=== PATIENT | female | born 1985 | race Caucasian/White ===

== ENCOUNTER 2016-11-14 16:11 | Inpatient (IN) ==
--- OUTSIDE RECORDS SUMMARY | 2016-11-14 16:20 | External Medical Summary | Continuity of Care Document ---
:1985 Author Organization [facility] Address [address] [place], [place] [id number] Phone Care Team Providers Name Role Phone Gabriela Amaya MD Unavailable Unavailable Allergies, Adverse Reactions, Alerts Substance Reaction Severity Status No Known Drug Allergies Unknown Active Medications Medication Instructions Dosage Effective Dates Status Comments (start - stop) 28 mg take 1 tablet by Not Available - Active iron-800 mcg oral route every tablet day Problems Condition Effective Dates (start - stop) Clinical Status Encntr screen for infections w sexl - mode of transmiss Encounter for screening for oth - infec/parastc diseases Encounter for suprvsn of normal - , first trimester Encounter for screening of - mother 10 weeks gestation of - Encounter for suprvsn of normal - , first trimester 13 weeks gestation of - Encounter for suprvsn of normal - , second trimester 20 weeks gestation of - Encounter for suprvsn of normal - , second trimester 27 weeks gestation of - Encounter for suprvsn of normal - , second trimester 17 weeks gestation of - 20 weeks gestation of - Encounter for screening of - mother Encounter for suprvsn of normal - , second trimester 24 weeks gestation of - Encounter for suprvsn of normal - , third trimester 30 weeks gestation of - Encounter for suprvsn of normal - , third trimester 32 weeks gestation of - Irregular Bleeding Active Procedures Procedure Date Unknown Results Test Name Date and Time Measure Units Reference Range Abnormal Flag Comments Unknown Advance Directives Directive Yes / No Effective Date File Name Unknown Encounters Encounter Practice Location Reason(s) Diagnoses Date Provider Care Team Description For Visit Members Tiny Silva Encounter for Sep-1 Per Referring In Womens suprvsn of normal 7-201 [place]. 700 Provider: Health GABRIEL, , third 7 Medical [place] [email or web address] weeks Center Per [place], 1522, gestation of [place], 120, Medical [facility] [id number], [place], [facility] 120, [place] [id number] Ricardo, tel:+ , [place], tel: [phone]. [id number] tel:[phone] Tiny Silva Aug-0 Per In Womens 7-201 [place]. 700 Health GABRIEL, 7 Medical PO Box Center 1522, [place], [facility], Ricardo SEGURA [id number], [place], [id number] tel: , . tel: [phone] Tiny Silva Encounter for Sep-0 Per Referring In Womens suprvsn of normal 3-201 [place]. 700 Provider: Health GABRIEL, , third 7 Medical Trevor [address] [email or web address] weeks Center Per [place], 1522, gestation of [place], 120, Medical [facility] [id number], [place], [facility] 120, [place] [id number] Ricardo, tel: , [place], tel: [phone]. [id number] tel:[phone] Tiny Silva Encounter for Aug- Per Referring In Womens suprvsn of normal 3-201 [place]. 700 Provider: Health GABRIEL, , second 7 Medical Trevor PO Box weeks Center Per [place], 1522, gestation of [place], 120, Medical [facility] [id number], [place], [facility] 120, [place] [id number] Ricardo, tel: , [place], tel: [phone]. [phone] tel:[phone] Tiny Silva Encounter for Vikram-2 Au Referring In Womens suprvsn of normal 1-201 [place]. Provider: Health GABRIEL, , second 7 700 [place] [address] [email or web address] weeks Medical Per [place], 1522, gestation of Center [employer], [facility], 120, [place] [id number], [place], [facility] 120, [place] Ricardo SEGURA, tel: [phone] [place], , [place]. [id number]. tel: tel: [phone] Tiny Silva Encounter for May-2 Per Referring In Womens suprvsn of normal 4-201 [place]. 700 Provider: Panfilo RIOS, , second 7 Medical Trevor [address] [email or web address] weeks Center Per R, 1522, gestation of [place], 120, Medical [facility] [id number], [place], [facility] 120, [place] [id number] Ricardo, tel: , [place] tel: [phone]. [id number] tel:[phone] Tiny Silva 20 weeks May-2 Per Referring In Womens Ultrasound gestation of 4-201 [place]. 700 Provider: Panfilo RIOS, pregnancyEncounte 7 Medical Trevor PO Box r for Center Per R, 1522, screening of [place], mother 120, Medical [facility] [id number], [place], [facility] 120, [place] [id number] Ricardo, tel: , [place] tel: [phone]. [phone] tel:[phone] Tiny Silva Encounter for May-0 Per Referring In Womens suprvsn of normal 2-201 [place]. 700 Provider: Panfilo RIOS, , second 7 Medical Trevor [address] [email or web address] weeks Center Per R, 1522, gestation of [place], 120, Medical [facility] [id number], [place], [place] 120, [place] [id number] Ricardo, tel: , [place], tel: [phone]. [phone] tel:[phone] Tiny Silva Encounter for Apr-0 Per Referring In Womens suprvsn of normal 4-201 [place]. 700 Provider: Panfilo RIOS, , first 7 Medical [place] [address] [email or web address] weeks [place] Per R, 1522, gestation of [place], 120, Medical [facility] [id number], [place], [place] 120, [place] [id number] Ricardo, tel: , [place], tel: [phone]. [id number] tel:[phone] Tiny Silva Encntr screen for Mar-0 Per Referring In Womens infections w sexl 7-201 [place]. 700 Provider: Panfilo RIOS, mode of 7 Medical [place] PO Box transmissEncounte [place] Per R, 1522, r for screening [place], for oth 120, Medical [place], infec/parastc [facility] [id number], diseasesEncounter [place], [place] 120, [place] for suprvsn of [id number] Ricardo, tel: normal , , [place], first tel: [phone]. trimesterEncounte [id number] tel: r for [phone] screening of [email or web address] weeks gestation of Family History Family Member Diagnosis Age At Onset Paternal Grandfather Stroke Paternal Grandmother Breast Cancer Paternal Grandmother Osteoporosis Immunizations Vaccine Date Status Comments Unknown Payers Payer name Insurance type Covered constitution party ID Authorization(s) [facility] [id number] Social History Type Description Quantity Date Captured Unknown Vital Signs Date / Height Weight BMI Pulse Blood Temperature Respiratory Body Head BMI Time: Rate Pressure Rate Surface Circumference percentile Area Unknown Chief Complaint And Reason For Visit Unknown Chief Complaint And Reason For Visit Reason For Referral Reason For Referral Unknown Plan Of Care Date Type Action Status Appointment Gosia Damian BOOKED Future Order: Radiology Order Complete OB Ultrasound > 14 Ordered Weeks ([id number]) Date Type Problem Goal Intervention Status Start Date Unknown. History Of Present Illness Encounter Date Complaint History Of Present Illness This patient has no known history of present illness Functional Status Encounter Date Functional Assessment Cognitive Assessment Unknown Medications Administered Medication Instructions Dosage Effective Dates (start - stop) Status Comments Drug Treatment Unknown Instructions Date Instruction Additional Information exercise indications for ultrasound influenza vaccine environmental / work hazards travel use of any medications (including supplements, vitamins, herbs, OTC drugs) domestic violence seat belt use childbirth classes / hospital facilities hospital registration genetic testing HIV and other routine tests risk factors identified by history anticipated course of care nutrition and weight gain counseling, special diet toxoplasmosis precautions (cats / raw meat) sexual activity new ob handbook
--- OUTSIDE RECORDS SUMMARY | 2016-11-14 16:20 | External Medical Summary | Continuity of Care Document ---
:1985 Author Organization [facility] [employer] [facility] Address [address] [place], [place] [phone] Phone Care Team Providers Name Role Phone Gabriela Amaya MD Unavailable Unavailable Allergies, Adverse Reactions, Alerts Substance Reaction Severity Status No Known Drug Allergies Unknown Active Medications Medication Instructions Dosage Effective Dates Status Comments (start - stop) 28 mg take 1 tablet by Not Available - Active iron-800 mcg oral route every tablet day Tums 200 mg - Active calcium (500 mg) chewable tablet Problems Condition Effective Dates (start - stop) Clinical Status Encounter for suprvsn of normal - , third trimester 34 weeks gestation of - Encntr screen for infections w sexl - mode of transmiss Encounter for screening for oth - infec/parastc diseases Encounter for suprvsn of normal - , first trimester Encounter for screening of - mother 10 weeks gestation of - Encounter for suprvsn of normal - , third trimester 36 weeks gestation of - Encounter for screening of - mother Encounter for suprvsn of normal - , first trimester 13 weeks gestation of - Encounter for suprvsn of normal - , second trimester 20 weeks gestation of - Encounter for suprvsn of normal - , second trimester 17 weeks gestation of - Encounter for screening of - mother 20 weeks gestation of - Encounter for suprvsn of normal - , second trimester 24 weeks gestation of - Encounter for suprvsn of normal - , second trimester 27 weeks gestation of - Encounter for suprvsn of normal - , third trimester 30 weeks gestation of - Encounter for suprvsn of normal - , third trimester 32 weeks gestation of - Encounter for suprvsn of normal - , third trimester 37 weeks gestation of - Irregular Bleeding Active Procedures Procedure Date OB Visit No Charge Results Test Name Date and Time Measure Units Reference Range Abnormal Flag Comments Unknown Advance Directives Directive Yes / No Effective Date File Name Unknown Encounters Encounter Practice Location Reason(s) Diagnoses Date Provider Care Team Description For Visit Members Tiny Silva Encounter for Sep-2 Per Referring In Womens suprvsn of normal 0-201 [place]. 700 Provider: Health [place], , third 7 Medical [place] [address] [email or web address] weeks Center Per R, 1522, gestation of [place], 120, Medical RIRicardo [place] [id number], [facility] 120, [place] [id number] Ricardo, tel: , [place], tel: [phone]. [id number] tel:[phone] Tiny Silva Encounter for Sep-1 Per Referring In Womens suprvsn of normal 3-201 [place]. 700 Provider: Health [place], , third 7 Medical [place] [address] [email or web address] weeks Center Per R, 1522, gestation of [place], pregnancyEncounte 120, Medical [place], r for [place] [id number], [facility], [place] mother [id number] [place]ardo, tel: , [place], tel: [phone]. [id number] tel:[phone] Tiny Silva Encounter for Sep-3 Per Referring In Womens suprvsn of normal 1-201 [place]. 700 Provider: Health [place], , third 7 Medical [place] PO Box [email or web address] weeks Center Per R, 1522, gestation of [place], 120, Medical [facility] [id number], [place], [facility] 120, [place] [id number] Ricardo, tel:+2 , [place]. [place], tel: [phone]. [phone] tel:[phone] Tiny Silva Encounter for Aug-1 Per Referring In Womens suprvsn of normal 7-201 [place]. 700 Provider: Health GABRIEL, , third 7 Medical [place] PO Box [email or web address] weeks Center Per R, 1522, gestation of [place], 120, Medical [facility] [id number], [place], [facility] 120, [place] [id number] Ricardo, tel:+ , [place], tel: [phone]. [phone] tel:[phone] Tiny Silva Encounter for Aug-0 Per Referring In Womens suprvsn of normal 3-201 [place]. 700 Provider: Health GABRIEL, , third 7 Medical [place] [address] [email or web address] weeks Center Per R, 1522, gestation of [place], 120, Medical [facility] [id number], [place], [facility] 120, [place] [id number] Ricardo, tel:+ , [place], tel: [phone]. [id number] tel:[phone] Tiny Silva Encounter for Dangelo-1 Per Referring In Womens suprvsn of normal 3-201 [place]. 700 Provider: Health [place], , second 7 Medical [place] PO Box [email or web address] weeks Center Per R, 1522, gestation of [place], 120, Medical [facility] [id number], [place], [place] 120, [place] [id number] Ricardo, tel:+316 , [place], tel: [phone]. [phone] tel:[phone] Tiny Silva Encounter for Vikram-2 Au Referring In Womens suprvsn of normal 1-201 [place]. Provider: Health [place], , second 7 700 [place] [address] [email or web address] weeks Medical Per R, 1522, gestation of Center [employer], , [facility] [facility], 120, [place] [id number], Ricardo, [facility] 120, [place] Ricardo SEGURA, tel: [phone] [place], , [place]. [id number]. tel: tel:[phone] Tiny Silva Encounter for May-2 Per Referring In Womens suprvsn of normal 4-201 [place]. 700 Provider: Health GABRIEL, , second 7 Medical [place] PO Box [email or web address] weeks Center Per R, 1522, gestation of [place], 120, Medical [facility] [id number], [place], [facility] 120, [place] [id number] Ricardo, tel: , [place], tel: [phone]. [id number] tel:[phone] Tiny Silva Encounter for May-2 Per Referring In Womens Ultrasound 4-201 [place]. 700 Provider: Panfilo RIOS, screening of 7 Medical [place] PO Box [email or web address] weeks Center Per R, 1522, gestation of [place], 120, Medical Ric[facility] [id number], [place], [facility] 120, [place] [id number] Ricardo, tel: , [place], tel: [phone]. [phone] tel:[phone] Tiny Silva Encounter for May-0 Per Referring In Womens suprvsn of normal 2-201 [place]. 700 Provider: Health GABRIEL, , second 7 Medical [place] PO Box [email or web address] weeks Center Per R, 1522, gestation of [place], 120, Medical Ric[facility] [id number], [place], [facility] 120, [place] [id number] Ricardo, tel: , [place], tel: [phone]. [id number] tel:[phone] Tiny Silva Encounter for Apr-0 Per Referring In Womens suprvsn of normal 4-201 [place]. 700 Provider: Health GABRIEL, , first 7 Medical [place] [address] Box [email or web address] weeks Center Per R, 1522, gestation of [place], 120, Medical [place], [facility] [id number], [place], [facility] 120, [place] [id number] Ricardo, tel: , [place], tel: [phone]. [phone] tel:[phone] Associates Ricardo Encntr screen for Mar-0 Per Referring In Womens infections w sexl 7-201 [place]. Ingris Provider: Health [place], mode of 7 [facility] PO Box transmissEncounte [place] Per R, 1522, r for screening [place], for oth 120, Medical IMELDA infec/parastc [facility] [id number], [facility] [place], [facility] 120, [place] for suprvsn of [id number] Ricardo, tel: normal , , [place], first tel: [phone]. trimesterEncounte [id number] tel: r for [phone] screening of [email or web address] weeks gestation of Family History Family Member Diagnosis Age At Onset Paternal Grandfather Stroke Paternal Grandmother Breast Cancer Paternal Grandmother Osteoporosis Immunizations Vaccine Date Status Comments Tdap completed Source: New Immunization Record Payers Payer name Insurance type Covered constitution party ID Authorization(s) [facility] [id number] [facility] [id number] Social History Type Description Quantity Date Captured Alcohol Use Details No Caffeine Use Details Unknown Tobacco Use Status Unknown Smoking Status Never smoker Vital Signs Date / Height Weight BMI Pulse Blood Temperature Respiratory Body Head BMI Time: Rate Pressure Rate Surface Circumference percentile Area 174.60 28.6 129/2017 lbs 1 mm[Hg] 4:59 kg/m PM eter (2) Chief Complaint And Reason For Visit Unknown Chief Complaint And Reason For Visit Reason For Referral Reason For Referral Unknown Plan Of Care Date Type Action Status Appointment Gosia Damian BOOKED Future Order: Radiology Order Complete OB Ultrasound > 14 Ordered Weeks ([id number]) Date Type Problem Goal Intervention Status Start [...]
--- OUTSIDE RECORDS SUMMARY | 2016-11-14 16:20 | External Medical Summary ---
:1985 Author Organization [facility]. Summary purpose CCDA Sent to [facility] Chief Complaint and Reason for Visit No authorized Reason for Visit (Admitting Diagnosis) is available for this visit. Problem list Condition Status Certainty Chronicity Onset .Delivery, vaginal Discharged Encounters The following conditions tracked for encounter diagnoses were recorded for this visit: Finding or Diagnosis Status Certainty Chronicity Onset .Delivery, vaginal Discharged Medications Discharge Medications Status Medication Directions Current Pre- Multivitamins with Minerals 27 mg-1 mg-300 mg capsule oral -Daily Allergies, adverse reactions, alerts Allergen Category Ingredient Status Reaction Severity Onset No Allergy Information Drug No Allergy Inactive Available Information Available Immunizations No immunizations recorded for this patient visit Relevant diagnostic tests and/or laboratory data RESULTS 88-60-565110:08:03 Discharge Summary s/p . Doing well. . CBC 20-67-826219:55:00 Result Normal Range Units HGB L 8.5 12.0-16.0 g/dl HCT L 26.5 37.0-47.0 % 40-91-325428:44:00 Result Normal Range Units WBC H 11.45 4.8-10.8 x103/mm3 Neutrophil % H 81.4 50-70 % Lymph % L 11.2 20-50 % [place] % 6.9 1.0-9.0 % Eosinophil % 0.3 0-4 % Basophil % 0.2 0-2 % Neutrophil # H 9.33 3.0-7.0 x103/mm3 Lymph # 1.28 1.0-4.0 x103/mm3 [place] # 0.79 0.0-0.8 x103/mm3 Eosinophil # 0.03 0-0.5 x103/mm3 Basophil # 0.02 0-0.2 x103/mm3 RBC L 3.14 4.20-5.40 x103/mm3 HGB L 9.6 12.0-16.0 g/dl HCT L 29.5 37.0-47.0 % MCV 93.9 81-99 FL MCH 30.6 27.0-31.0 pg MCHC 32.5 32.0-36.0 g/dl RDW 14.6 12-15 % Platelet 155 150-400 x103/mm3 MPV H 12.1 6.0-10.0 FL History of procedures Procedure Code Code Type Description Date Performed Performing Physician [id number] ICD10 Delivery of Products of 03-12-2015 ELVI FAST Conception, External Approach [id number] ICD10 Introduce Regional 03-12-2015 ELVI FAST Anesth in Epidural Space, Perc [id number] ICD10 Repair Perineum Skin, 03-12-2015 ELVI FAST External Approach [id number] ICD10 Drainage of Amniotic Fl, 03-12-2015 ELVI FAST Therap from POC, Via Opening [id number] ICD10 Monitoring of POC, 03-12-2015 ELVI FAST Cardiac Rate, Bottom Man Approach Functional status Functional Status Finding Observation Time Dexterity Left-handed 77-09-313765:40 Weight Bearing Statu Full 22-13-061170:45 Transferring/Ambulat Independent 37-27-152264:40 Bathing Independent 58-98-655615:40 Dressing Independent 88-41-462050:40 Eating Independent 04-30-567521:40 Drinking Independent 74-72-006993:40 Toileting Independent 66-11-046818:40 Able to Turn Self in Independent 39-54-239815:40 Stairs Independent 41-15-996425:40 Cognitive Status Finding Observation Time Level of Consciousne Alert :28 Oriented to Person Yes 76-28-229998:[address] Yes 16-50-263446:28 Oriented to Time Yes 60-48-108161:28 Eyes - ABDIAS Yes 23-31-669495:42 Vital signs Type Value Date Respirations 20 :45 Pulse 114 :45 O2 Saturation 100% :45 Systolic Blood Press 131mm/HG :45 Diastolic Blood Pres 88mm/HG :45 Temperature (Fahr) 97.5Degrees :45 Height 65.5in :58 Weight 183.8LB :58 Social history Type Value Smoking Status NEVER SMOKER Treatment Plan Treatment Plan at [facility]. Follow up 6 weeks. Hospital discharge instructions No discharge instruction text is available for this visit.
--- OUTSIDE RECORDS SUMMARY | 2016-11-14 16:21 | External Medical Summary | Continuity of Care Document ---
:1985 Author Organization [facility] Address [address] [place], [place] [id number] Phone Care Team Providers Name Role Phone Gabriela Amaya MD Unavailable Unavailable Allergies, Adverse Reactions, Alerts Substance Reaction Severity Status No Known Drug Allergies Unknown Active Medications Medication Instructions Dosage Effective Dates Status Comments (start - stop) 28 mg take 1 tablet by Not Available - Active iron-800 mcg oral route every tablet day amoxicillin 500 take 1 tablet by 500 MG - No Longer mg tablet ORAL route 3 times Active every day for 7 days Problems Condition Effective Dates (start - stop) Clinical Status Encounter for suprvsn of normal - , third trimester 32 weeks gestation of - Encntr screen for infections w sexl - mode of transmiss Encounter for screening for oth - infec/parastc diseases Encounter for suprvsn of normal - , first trimester 10 weeks gestation of - Encounter for screening [...] third trimester 34 weeks gestation of - Irregular Bleeding Active Procedures Procedure Date OB Visit No Charge Results Test Name Date and Time Measure Units Reference Range Abnormal Flag Comments Unknown Advance Directives Directive Yes / No Effective Date File Name Unknown Encounters Encounter Practice Location Reason(s) Diagnoses Date Provider Care Team Description For Visit Members Tiny Silva Encounter for Sep-3 Per Referring In Womens suprvsn of normal 1-201 [place]. 700 Provider: Health GABRIEL, , third 7 Medical [place] [address] [email or web address] weeks [place] Per Wiley, 1522, gestation of [place] Paz, 120, [facility] [id number], [place], [facility] 120, [place] [id number] Ricardo, tel: , . [place], tel: [phone]. [id number] tel:[phone] Tiny Silva Encounter for Sep-1 Per Referring In Womens suprvsn of normal 7-201 [place]. 700 Provider: Health GABRIEL, , third 7 Medical [place] PO Box [email or web address] weeks [place] Per Wiley 1522, gestation of [place] Paz, 120, [facility] [id number], [place], [facility] 120, [place] [id number] Ricardo, tel: , [facility], tel: [phone]. [id number] tel:[phone] Tiny Silva Encounter for Aug-0 Per Referring In Womens suprvsn of normal 3-201 [place]. 700 Provider: Health GABRIEL, , third 7 Medical Trevor [address] [email or web address] weeks Center Per Wiley, 1522, gestation of [place] Paz, 120, [facility] [id number], [place], [place] 120, [place] [id number] Ricardo, tel: , [place]. [place], tel: [phone]. [id number] tel:[phone] Tiny Silva Encounter for Aug-1 Per Referring In Womens suprvsn of normal 3-201 [place]. 700 Provider: Panfilo RIOS, , second 7 Medical Trevor PO Box [email or web address] weeks Center Per R, 1522, gestation of [place] Paz, 120, [facility] [id number], [place], [facility] 120, [place] [id number] Ricardo, tel: , [place]. [place], tel: [phone]. [id number] tel:[phone] Tiny Silva Encounter for Vikram-2 Au Referring In Womens suprvsn of normal 1-201 [place]. Provider: Panfilo RIOS, , second [address] [place] [address] Box [email or web address] weeks Medical Per R, 1522, gestation of Jeniffer Cleaning, [place] Paz [facility], 120, [place] [id number], [place], [facility] 120, [place] Ricardo SEGURA, tel: [phone] [place], , [place]. [id number]. tel: tel: [phone] Tiny Silva Encounter for June-2 Per Referring In Womens suprvsn of normal 4-201 [place]. 700 Provider: Panfilo RIOS, , second 7 Medical [place] PO [address] [email or web address] weeks Center Per R, 1522, gestation of [place] Paz, 120, [facility] [id number], [place], [facility] 120, [place] [id number] Ricardo, tel: , [place]. [place], tel: [phone]. [id number] tel:[phone] Tiny Silva Encounter for May-2 Per Referring In Womens Ultrasound 4-201 [place]. 700 Provider: Panfilo RIOS, screening of 7 Medical Trevor PO Box weeks Center Per R, 1522, gestation of [place] Paz, 120, Medical Ricardo SEGURA, [place] [id number], [place], [place] 120, [place] [id number] Ricardo, tel: , [place]. [place], tel: [phone]. [id number] tel:[phone] Tiny Silva Encounter for May-0 Per Referring In Womens suprvsn of normal 2-201 [place]. 700 Provider: Health GABRIEL, , second 7 Medical [place] PO Box [email or web address] weeks [place] Per R, 1522, gestation of [place] Paz, 120, Medical Ricardo SEGURA [place] [id number], [place], [facility] 120, [place] [id number] Ricardo, tel: , [place]. [place], tel: [phone]. [id number] tel:[phone] Tiny Silva Encounter for Apr-0 Per Referring In Womens suprvsn of normal 4-201 [place]. 700 Provider: Panfilo RIOS, , first 7 Medical [place] PO Box weeks Center Per R, 1522, gestation of [place] Paz, 120, [facility] [id number], [place], [facility] 120, [place] [id number] Ricardo, tel: , [place]. [place], tel: [phone]. [id number] tel:[phone] Tiny Silva Encntr screen for Mar-0 Per Referring In Womens infections w sexl 7-201 [place]. 700 Provider: Panfilo RIOS, mode of 7 Medical [place] PO Box transmissEncounte [place] Per R, 1522, r for screening [place] Paz, for oth 120, Medical IMELDA infec/parastc Jeniffer [address] Dr [id number], diseasesEncounter [place], [facility] 120, [place] for suprvsn of [id number] Ricardo, tel: normal , , [place]. [place] first [id number] tel: [phone]. weeks gestation [id number] tel: of [phone] pregnancyEncounte r for screening of mother Family History Family Member Diagnosis Age At Onset Paternal Grandfather Stroke Paternal Grandmother Breast Cancer Paternal Grandmother Osteoporosis Immunizations Vaccine Date Status Comments Unknown Payers Payer name Insurance type Covered green party ID Authorization(s) [facility] IMELDA KEANE [id number] Social History Type Description Quantity Date Captured Alcohol Use Details No Caffeine Use Details Unknown Tobacco Use Status Unknown Smoking Status Never smoker Vital Signs Date / Height Weight BMI Pulse Blood Temperature Respiratory Body Head BMI Time: Rate Pressure Rate Surface Circumference percentile Area 170.70 27.9 133/83 -2017 lbs 7 mm[Hg] 4:43 kg/m PM eter (2) Chief Complaint And Reason For Visit Unknown Chief Complaint And Reason For Visit Reason For Referral Reason For Referral Unknown Plan Of Care Date Type Action Status Appointment Gosia Damian BOOKED Future Order: Radiology Order Complete OB Ultrasound > 14 Ordered Weeks (70772) Date Type Problem Goal Intervention Status Start [...]
--- OUTSIDE RECORDS SUMMARY | 2016-11-14 16:21 | External Medical Summary | Continuity of Care Document ---
:1987 Author Organization [facility]. Allergies Active Description Code Type Severity Reaction Onset Reported/ Identified Relationship Clinical to Patient Status Yes No Known 77926 3 N/A N/A Drug 0 Allergies Yes No Allergy 143 Drug N/A N/A 03/12/2015 Confirmed Information Aller but Available gy inactive Yes No Known 66560 Drug N/A N/A 03/12/2015 Confirmed Drug Allergy 590 Aller but gy inactive Medications Problems Date Dx Attending Type Code Diagnosis Diagnosed By Coded 03/14/2015 ELVI EL MD O69.81X0 Labor and del comp by cord around neck, w/o comprsn, unsp 03/14/2015 ELVI EL MD O70.1 Second degree perineal laceration during delivery 03/14/2015 ELVI EL MD O99.824 Streptococcus B carrier state complicating childbirth 03/14/2015 ELVI EL MD 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 03/14/2015 ELVI EL MD Z37.0 Single live 03/14/2015 ELVI EL MD Z3A.39 39 weeks gestation of 07/07/2016 Trevor Albarado Z36 Encounter for screening of mother 07/07/2016 Trevor Albarado Z3A.20 20 weeks gestation of Procedures Code Description Performed By Performed On ELVI EL MD 03/12/2015 [id number] Repair Perineum Skin, External Approach ELVI EL MD 03/12/2015 [id number] Drainage of Amniotic Fl, Therap from POC, Via Opening ELVI EL MD 03/12/2015 [id number] Delivery of Products of Conception, External Approach ELVI EL MD 03/12/2015 [id number] Introduce Regional Anesth in Epidural Space, Perc ELVI EL MD 03/12/2015 [id number] Monitoring of POC, Cardiac Rate, Manager Social Responsibility Approach 07/07/2016 39112 Ultrasnd exam of preg uterus, compl Results Test Result Range CBC - 01/27/16 09:53 Eos # 0.03 x10^3 0-0.5 Eos % 0.3 % 0-4 HCT 29.5 % 37.0-47.0 HGB 9.6 G/DL 12.0-16.0 Lymph # 1.28 x10^3 1.0-4.0 Lymph % 11.2 % 20-50 MCH 30.6 PG 27.0-31.0 MCHC 32.5 G/DL 32.0-36.0 MCV 93.9 FL 81-99 [place] # 0.79 x10^3 0.0-0.8 [place] % 6.9 % 1.0-9.0 MPV 12.1 FL 6.0-10.0 Platelet 155 x10^3 150-400 RBC 3.14 x10^3 4.20-5.40 RDW 14.6 % 12-15 WBC 11.45 x10^3 4.8-10.8 Baso # 0.02 x10^3 0-0.2 Baso % 0.2 % 0-2 Neut % 81.4 % 50-70 Neut # 9.33 x10^3 3.0-7.0 HCT - 03/13/15 07:44 HCT 26.5 % 37.0-47.0 HGB - 03/13/15 07:44 HGB 8.5 G/DL 12.0-16.0 Encounters ACCT No. Visit Discharge Status Pt. Type Provider Facility Loc./Unit Complaint Date/Time [id number] 03/12/2015 03/14/2015 DIS Inpatient FAST Phong WARREN [facility] 07:45:00 15:56:[address] [facility] [id number] 10/27/2016 10/27/2016 CLS Kevin Albarado, 16:30:00 23:59:59 t Trevor Wiley [id number] 10/14/2016 10/14/2016 ROBSON Albarado, 16:20:00 23:59:59 t Trevor Wiley [id number] 09/30/2016 09/30/2016 CLS Kevin Albarado, 16:20:00 23:59:59 t [place] Wiley [id number] 09/20/2016 09/20/2016 ROBSON Albarado, 08:40:00 23:59:59 t Trevor Wiley [id number] 09/16/2016 09/16/2016 CLS Outpatien Per, 16:30:00 23:59:59 t Trevor Wiley [id number] 08/26/2016 08/26/2016 CLS Outpatien Per, 09:40:00 23:59:59 t Trevor Wiley [id number] 2016 2016 CLS Outpatien Per, 11:51:00 23:59:59 t Trevor Wiley [id number] 08/04/2016 08/04/2016 CLS Outpatien Au, 16:30:00 23:59:59 t Ruma K [id number] 07/07/2016 07/07/2016 CLS Outpatien Per, 16:15:00 23:59:59 t Trevor Wiley [id number] 07/07/2016 07/07/2016 CLS Outpatien Per, 15:45:00 23:59:59 t Trevor Wiley [id number] 06/15/2016 06/15/2016 CLS Outpatien Per, 16:30:00 23:59:59 t Trevor Wiley [id number] 05/18/2016 05/18/2016 CLS Outpatien Per, 16:15:00 23:59:59 t Trevor Wiley [id number] 04/20/2016 04/20/2016 CLS Outpatien Per, 10:15:00 23:59:59 t Trevor Wiley [id number] 11/10/2016 Document 16:20:00 Registrat ion [id number] 11/03/2016 Document 16:25:00 Registrat ion
--- OUTSIDE RECORDS SUMMARY | 2016-11-14 16:21 | External Medical Summary | Continuity of Care Document ---
:1985 Author Organization [facility] Address [address] [place], [place] [address] Phone Care Team Providers Name Role Phone [...] second trimester 27 weeks gestation of - Irregular Bleeding Active Procedures Procedure Date Unknown Results Test Name Date and Time Measure Units Reference Range Abnormal Flag Comments Unknown Advance Directives Directive Yes / No Effective Date File Name Unknown Encounters Encounter Practice Location Reason(s) Diagnoses Date Provider Care Team Description For Visit Members Tiny Silva Encounter for Aug- Per Referring In Womens suprn of normal 3-201 [place]. 700 Provider: Health GABRIEL, , second 7 Medical [place] PO Box [email or web address] weeks [place] Per R, 1522, gestation of [place] Paz, 120, [facility] [id number], [place], [facility] 120, [place] [id number] Ricardo, tel: , [place], tel: [phone]. [id number] tel:[phone] Tiny Silva Vikram-2 Per In Womens 9-201 [place]. 700 Health GABRIEL, 7 Medical PO Box Center 1522, [place] P[place], [facility], Ricardo SEGURA, [id number], [place], [id number] tel: , [place]. tel: [phone] Tiny Silva Encounter for Vikram-2 Au Referring In Womens suprn of normal 1-201 [place]. Provider: Health GABRIEL, , second [address] [place] [address] Box weeks Medical Per R, 1522, gestation of Jeniffer Cleaning, [address], 120, [place] [id number], [facility] 120, Ricardo SEGURA, tel: [phone] [place], , [place]. [id number]. tel: tel: [phone] Tiny Silva Encounter for June-2 Per Referring In Womens suprvsn of normal 4-201 [place]. 700 Provider: Health GABRIEL, , second 7 Medical [place] PO Box [email or web address] weeks Center Per R, 1522, gestation of [place] Paz, 120, Medical [facility] [id number], [place], [facility] 120, [place] [id number] Ricardo, tel: , [place]. [place] tel: [phone]. [id number] tel:[phone] Tiny Silva 20 weeks May-2 Per Referring In Womens Ultrasound gestation of 4-201 [place]. 700 Provider: Health GABRIEL, pregnancyEncounte 7 Medical [place] PO Box r for Center Per R, 1522, screening of [place] Paz, mother 120, Medical [facility] [id number], [place], [place] 120, [place] [id number] Ricardo, tel: , [place]. [place], tel: [phone]. [id number] tel:[phone] Tiny Silva Encounter for May-0 Per Referring In Womens suprvsn of normal 2-201 [place]. 700 Provider: Health GABRIEL, , second 7 Medical [place] PO Box [email or web address] weeks Center Per R, 1522, gestation of [place] Paz, 120, Medical [facility] [id number], [place], [place] 120, [place] [id number] Ricardo, tel: , [place]. [place] tel: [phone]. [id number] tel:[phone] Tiny Silva Encounter for Apr-0 Per Referring In Womens suprvsn of normal 4-201 [place]. 700 Provider: Health GABRIEL, , first 7 Medical [place] PO Box [email or web address] weeks Center Per R, 1522, gestation of [place] Paz, 120, Medical [facility] [id number], [place], [place] 120, [place] [id number] Ricardo, tel: , [place]. [place] tel: [phone]. [id number] tel:[phone] Tiny Silva Encntr screen for Mar-0 Per Referring In Womens infections w sexl 7-201 [place]. 700 Provider: Health GABRIEL, mode of 7 Medical [place] PO Box transmissEncounte Center Per R, 1522, r for screening [place] Paz, for oth 120, Medical [place], [facility] [id number], diseasesEncounter [place], [place] 120, [place] for suprvsn of [id number] Ricardo, tel: normal , , [place]. [place] first tel: [phone]. trimesterEncounte [id number] tel:[phone] r for [phone] screening of [id number] weeks gestation of Family History Family Member Diagnosis Age At Onset Paternal Grandfather Stroke Paternal Grandmother Breast Cancer Paternal Grandmother Osteoporosis Immunizations Vaccine Date Status Comments Unknown Payers Payer name Insurance type Covered alliance party ID Authorization(s) BERRYKEVIN KEANE [id number] Social History Type Description Quantity Date Captured [...] Complete OB Ultrasound > 14 Ordered Weeks (84450) Date Type Problem Goal Intervention Status Start [...]
--- OUTSIDE RECORDS SUMMARY | 2016-11-14 16:21 | External Medical Summary | Continuity of Care Document ---
:1987 Author Organization [facility] Address [address] [place], [place] [phone] Phone Care Team Providers Name Role Phone [...] third trimester 30 weeks gestation of - Encntr screen for [...] 17 weeks gestation of - Encounter for suprvsn of normal - , third trimester 32 weeks gestation of - Encounter for screening of - mother 20 weeks gestation of - Irregular Bleeding Active Procedures Procedure Date OB Visit No Charge Results Test Name Date and Time Measure Units Reference Range Abnormal Flag Comments Unknown Advance Directives Directive Yes / No Effective Date File Name Unknown Encounters Encounter Practice Location Reason(s) Diagnoses Date Provider Care Team Description For Visit Members Tiny Silva Encounter for Per Referring In Womens suprvsn of normal 7-201 [place]. 700 Provider: Health PA, , third 7 Medical [place] PO Box [email or web address] weeks Center Per Wiley, 1522, gestation of [place] Paz, 120, Medical [facility] [id number], [place], [facility] 120, [place] [id number] Ricardo, tel:+ , [place]. [place], tel: [phone]. [id number] tel:[phone] Tiny Silva Encounter for Per Referring In Womens suprvsn of normal 3-201 [place]. 700 Provider: Health GABRIEL, , third 7 Medical [place] PO Box [email or web address] weeks Center Per Wiley, 1522, gestation of [place] Paz, 120, Medical [facility] [id number], [place], [facility] 120, [place] [id number] Ricardo, tel: , [place], tel: [phone]. [id number] tel:[phone] Tiny Silva Encounter for Per Referring In Womens suprvsn of normal 3-201 [place]. 700 Provider: Health PA, , second 7 Medical [place] PO Box [email or web address] weeks Center Per Wiley, 1522, gestation of [place] Paz, 120, Medical [facility] [id number], [place], [place] 120, [place] [id number] Ricardo, tel: , . [place], tel: [phone]. [id number] tel:[phone] Tiny Silva Encounter for Jul- Au Referring In Womens suprvsn of normal 1-201 [place]. Provider: Health GABRIEL, , second 7 700 [place] PO Box [email or web address] weeks Medical Per R, 1522, gestation of Center Ingris Cleaning, , [place] [facility], 120, [place] [id number], Ricardo, [facility] 120, [place] Ricardo SEGURA, tel:+ [phone] [place], , [place]. [id number]. tel: tel:[phone] Tiny Silva Encounter for May-2 Per Referring In Womens suprvsn of normal 4-201 [place]. 700 Provider: Health GABRIEL, , second 7 Medical [place] PO Box [email or web address] weeks Center Per R, 1522, gestation of [place] Paz, 120, Medical [facility] [id number], [place], [facility] 120, [place] [id number] Ricardo, tel:+ , [place]. [place], tel: [phone]. [id number] tel:[phone] Tiny Silva Encounter for May-2 Per Referring In Womens Ultrasound 4-201 [place]. 700 Provider: Panfilo RIOS, screening of 7 Medical [place] PO Box [email or web address] weeks Center Per R, 1522, gestation of [place] Paz, 120, Medical [facility] [id number], [place], [facility] 120, [place] [id number] Ricardo, tel:+ , [place]. [place], tel: [phone]. [id number] tel:[phone] Tiny Silva Encounter for May-0 Per Referring In Womens suprvsn of normal 2-201 [place]. 700 Provider: Health GABRIEL, , second 7 Medical [place] PO Box [email or web address] weeks Center Per R, 1522, gestation of [place] Paz, 120, Medical Ricardo SEGURA, [place] [id number], [place], [facility] 120, [place] [id number] Ricardo, tel:+[phone] , [place]. [place], tel: [phone]. [id number] tel:[phone] Tiny Silva Encounter for Apr-0 Per Referring In Womens suprvsn of normal 4-201 [place]. 700 Provider: Health PA, , first 7 Medical [place] PO Box [email or web address] weeks Center Per R, 1522, gestation of [place] Pazta, 120, Medical [facility] [id number], [place], [facility] 120, [place] [id number] Ricardo, tel:+ , [place]. [place], tel: [phone]. [id number] tel:[phone] Associates Ricardo Encntr screen for Mar-0 Per Referring In Womens infections w sexl - Trevor. Ingris Provider: Health GABRIEL, mode of 7 Medical [place] PO Box transmissEncounte [place] Per R, 1522, r for screening [place] Paz, for oth 120, Medical [place], infec[facility]parastc [facility] [id number], diseasesEncounter [place], [facility] 120, [place] for suprvsn of [id number] Ricardo, tel: normal , , [place]. [place], first tel: [phone]. trimesterEncounte [id number] tel: r for [phone] screening of weeks gestation of Family History Family Member Diagnosis Age At Onset Paternal Grandfather Stroke Paternal Grandmother Breast Cancer Paternal Grandmother Osteoporosis Immunizations Vaccine Date Status Comments Unknown Payers Payer name Insurance type Covered republican ID Authorization(s) [facility] [id number] Social History Type Description Quantity Date Captured Alcohol Use Details No Caffeine Use Details Unknown Tobacco Use Status Unknown Smoking Status Never smoker Vital Signs Date / Height Weight BMI Pulse Blood Temperature Respiratory Body Head BMI Time: Rate Pressure Rate Surface Circumference percentile Area 165.80 27.1 129/ lbs 7 mm[Hg] 4:40 kg/m PM eter (2) Chief Complaint And Reason For Visit Unknown Chief Complaint And Reason For Visit Reason For Referral Reason For Referral Unknown Plan Of Care Date Type Action Status Appointment Gosia Damian BOOKED Future Order: Radiology Order Complete OB Ultrasound > 14 Ordered Weeks ([id number]) Date Type Problem Goal Intervention Status Start [...]
--- OUTSIDE RECORDS SUMMARY | 2016-11-14 16:21 | External Medical Summary | Continuity of Care Document ---
:1985 Author Organization [facility] Address [address] [place], [place] [id number] Phone Care Team Providers Name Role Phone [...] second trimester 27 weeks gestation of - Encntr screen for [...] Procedures Procedure Date OB Visit No Charge Hemoglobin count, colorimetric Hematocrit blood count Glucose test Venpnctr fngr/heel/ear stick routne Results Test Name Date and Time Measure Units Reference Range Abnormal Flag Comments Panel Description: Glucose [Mass/volume] in Serum or Plasma --1 hour post 50 g glucose PO GLUCOSE, 112 mg/dL <140 N Test performed at [facility] GESTATIONAL SCREEN 10:40:00 [id number] ([id number] [place] [address]Mliiraux: KELLY DAMIAN DO,MPH Panel Description: HEMOGLOBIN + HEMATOCRIT HEMOGLOBIN 10:40:00 11.4 g/dL 11.7-15.5 L HEMATOCRIT 10:40:00 33.6 % 35.0-45.0 L Test performed at [employer] [id number] [place] [address]Iefsspso: KELLY DAMIAN DO,MPH Advance Directives Directive Yes / No Effective Date File Name Unknown Encounters Encounter Practice Location Reason(s) Diagnoses Date Provider Care Team Description For Visit Members Tiny Silva Encounter for Per Referring [facility] 3-201 [place]. 700 Provider: Panfilo RIOS, , second 7 [facility] Box [email or web address] weeks [place] Per R, 1522, gestation of [place] Paz, 120, Medical [facility] [id number] [facility] 120, [id number] Ricardo, tel: , . [place], tel: [phone]. [id number] tel:[phone] Tiny Silva Encounter for Au Referring In [facility] 1-201 [place]. Provider: Health GABRIEL, , second 7 700 [facility] Box [email or web address] weeks Medical Per R, 1522, gestation of Center [address] [place], [address] [facility] IMELDA 120, [place] [id number] 120, Ricardo SEGURA, tel: [phone] [facility] , [place]. [id number]. tel: tel: [phone] Tiny Silva Encounter for May-2 Per Referring In Womens suprvsn of normal 4-201 [place]. 700 Provider: Health GABRIEL, , second 7 Medical Trevor [address] [email or web address] weeks Center Per R, 1522, gestation of [place] Paz, 120, Medical [facility] [id number], [place], [place] 120, [place] [id number] Ricardo, tel: , [place]. [place], tel: [phone]. [phone] tel:[phone] Tiny Silva Encounter for May-2 Per Referring In Womens Ultrasound 4-201 [place]. 700 Provider: Panfilo RIOS, screening of 7 Medical Trevor [address] [email or web address] weeks Center Per R, 1522, gestation of [place] Paz, 120, Medical [facility] [id number], [place], [place] 120, [place] [id number] Ricardo, tel: , [place]. [place], tel: [phone]. [phone] tel:[phone] Tiny Silva Encounter for May-0 Per Referring In Womens suprvsn of normal 2-201 [place]. 700 Provider: Health GABRIEL, , second 7 Medical Trevor [address] [email or web address] weeks Center Per R, 1522, gestation of [place] Paz, 120, Medical [facility] [id number], [place], [place] 120, [place] [id number] Ricardo, tel: , [place]. [place], tel: [phone]. [phone] tel:[phone] Tiny Silva Encounter for Apr-0 Per Referring In Womens suprvsn of normal 4-201 [place]. 700 Provider: Panfilo RIOS, , first 7 Medical Trevor [address] [email or web address] weeks Center Per R, 1522, gestation of [place], 120, Medical [facility] [id number], [place], [place] 120, [place] [id number] Ricardo, tel: , . [place] tel: [phone]. [id number] tel:[phone] [facility] Ricardo Encntr screen for Apr-0 Per Referring In Womens infections w sexl 7-201 [place]. [place] Provider: Panfilo RIOS, mode of 7 Medical Trevor PO Box [facility] Per R, 1522, r for screening [place] Paz 700 [place], for oth 120, Medical CT, in[facility]c [facility] [id number], diseases[place]cal[place], [place] 120, [place] for suprvsn of [id number] Ricardo, tel: normal , , [place]. [place], first tel: [phone]. trimesterEncounte [id number] tel: r for [phone] screening of [id number] weeks gestation of Family History Family Member Diagnosis Age At Onset Paternal Grandfather Stroke Paternal Grandmother Breast Cancer Paternal Grandmother Osteoporosis Immunizations Vaccine Date Status Comments Unknown Payers Payer name Insurance type Covered libertarian ID Authorization(s) [facility] [id number] Social History Type Description Quantity Date Captured Alcohol Use Details No Caffeine Use Details Unknown Tobacco Use Status Unknown Smoking Status Never smoker Vital Signs Date / Height Weight BMI Pulse Blood Temperature Respiratory Body Head BMI Time: Rate Pressure Rate Surface Circumference percentile Area 161.00 26.3 134/84 2017 lbs 8 mm[Hg] 9:41 kg/m AM eter (2) Chief Complaint And Reason For Visit Unknown Chief Complaint And Reason For Visit Reason For Referral Reason For Referral Unknown Plan Of Care Date Type Action Status Appointment Gosia Damian BOOKED Future Order: Radiology Order Complete OB Ultrasound > 14 Ordered Weeks ([id number]) Date Type Problem Goal Intervention Status Start [...]
[2016-11-14] MEDS ORDERED: CALCIUM CARBONATE Chewable 500mg TABLET PO PRN (17:11)
[2016-11-14] MEDS ORDERED: CARBOPROST 250 MCG/ML INJECTION IM PRN (17:11)
[2016-11-14] MEDS ORDERED: MAG-AL + SIM ORAL LIQUID 30ml PO PRN (17:11)
[2016-11-14] MEDS ORDERED: LIDOCAINE 1% (10mg/ml) 2mL INJ PF SDV ID PRN (17:11)
[2016-11-14] MEDS ORDERED: METHYLERGONOVINE 0.2 MG/ML INJECTION IM PRN (17:11)
[2016-11-14] MEDS ORDERED: ACETAMINOPHEN 500 MG TABLET PO PRN (17:11)
[2016-11-14 17:42] VITALS: BMI 30.1
[2016-11-14] MEDS: LR 1,000 ML IV PRN ×2 (18:45→20:56)
[2016-11-14] MEDS ORDERED: OXYTOCIN DRIP 30 UNIT/500 ML ML IV PRN (18:50)
[2016-11-14] MEDS ORDERED: D5LR 1,000 ML IV PRN (18:50)
[2016-11-14] MEDS ORDERED: DiphenhydrAMINE 50 MG/ML INJECTION IVP PRN (22:01)
[2016-11-14] MEDS ORDERED: NALOXONE 0.4 MG/ML INJECTION IVP PRN (22:01)
[2016-11-14] MEDS ORDERED: ONDANSETRON 4 MG/2 ML INJECTION IVP PRN (22:01)
[2016-11-14] MEDS ORDERED: ROPIVACAINE 1% 10MG/ML INJ 200 MG, SUFentanil 50 MCG in NS 100 ML EPI PRN (22:01)
--- NOTE | 2016-11-14 22:01 | Anesthesia Preoperative Report ---
Anesthesia Epidural/Spinal Rec - Date and Time Date: 11/14/16 Procedure: Labor Epidural Plan: Epidural - Vital Signs /Para: P:1 - Medictaions & Allergies Inpatient Medications: Current Medications Acetaminophen (Tylenol) 500 - 1,000 mg PO Q4H PRN PRN Reason: Pain Al Hydroxide/Mg Hydroxide (Maalox Plus) 30 ml PO Q3H PRN PRN Reason: Indigestion Calcium Carbonate (Tums) 500 - 1,000 mg PO Q2H PRN PRN Reason: Indigestion Carboprost Tromethamine (Hemabate) 250 mcg IM O PRN PRN Reason: .Downtime Lactated Ringer's (Lactated Ringers) 1,000 mls @ 999 mls/hr IV .Q1H1M PRN Last Admin: 11/14/16 20:56 Dose: 999 mls/hr Dextrose/Lactated Ringer's (Dextrose 5%-Lactated Ringers) 1,000 mls @ 125 mls/ hr IV .Q8H PRN PRN Reason: Labor Last Admin: 11/14/16 18:45 Dose: 125 mls/hr Oxytocin (Pitocin Drip) 30 unit in 500 mls @ 2 mls/hr IV .Q24H PRN; Protocol PRN Reason: Induction/Augmentation Last Admin: 11/14/16 18:45 Dose: 2 mls/hr Lidocaine HCl (Xylocaine-Mpf 1% Vial) 0.2 mg ID O PRN PRN Reason: IV Start Methylergonovine Maleate (Methergine) 0.2 mg IM O PRN Misoprostol (Cytotec) 800 mcg DC ONCE PRN Allergies/Adverse Reactions: Allergies Allergy/AdvReac Type Severity Reaction Status Date / Time No Known Allergies Allergy Verified 11/04/16 11:23 - Home Medications Home Medications: Home Medications Medication Instructions Recorded Confirmed Type CALCIUM CARBONATE Chewable [Tums] 500 mg PO PRN PRN 11/04/16 11/04/16 History Pnv No.95/Ferrous Fum/Folic AC 1 each PO DAILY 11/04/16 11/04/16 History [ Tablet] - Medical History Respiratory: DENIES: Asthma, Sleep Apnea Cardiovascular: DENIES: Angina, Hypertension Renal/Endocrine: DENIES: Diabetes Mellitus Type 2 Other History: Reports: Now - Surgical History Anesthesia Reactions: None Hx Family Anesthesia Reaction: No History of Motion Sickness: No - Social History Second Hand Exposure: No Substance Use Type: does not use Alcohol Intake Frequency: does not drink Hx Chewing Tobacco Use: No - Pertinent Findings Lab Data: CBC and BMP 11/14/16 18:18 - Physical Exam Respiratory Exam: lungs clear, bilateral breath sounds equal Cardiovascular Exam: regular rate and rhythm - Airway Assessment Mallampati Score: II TMD: 3 Fingerbreadths Neck Extension: good Overall Assessment: may be difficult mask vent, may be difficult intubation - ASA ASA Score: 2 - Discussion Discussion: Discussed risks/options/alternatives of anesthesia and questions answered. Patient consents. Nursing pain assessment noted. Anesthesia Discussion: spouse Attestation Statement: Prior to the delivery of any anesthetic medication, I examined the patient, developed the plan, obtained the patient's consent and discussed the risk and benefits of the procedure with the patient/guardian.
--- NOTE | 2016-11-15 00:24 | OB/GYN Procedure Note ---
Delivery date: 11/15/16 Events: Premature Rupture of Membrane Intrapartal events: Precipitous Labor < 3 hours Induction method: per pitocin protocol Delivery monitor: external FHT Route of delivery: Indication for instrumentation: nonreassuring FHR tracing Laceration description: Perineal - 2nd Degree Delivery repair: vicryl Estimated blood loss (mL): 400 Anesthesia type: Epidural Disposition: floor - Baby 1 gender: Female presentation: Vertex Placenta delivery description: Spontaneous cord vessel description: 3 Vessels at 1 minute: 8 at 5 minutes: 9 Narrative: See dicatation Ref # [id number] Report ID [id number]
[2016-11-15] MEDS ORDERED: DiphenhydrAMINE 25 MG CAPSULE PO PRN (00:42)
[2016-11-15] MEDS ORDERED: MAG-AL + SIM ORAL LIQUID 30ml PO PRN (00:42)
[2016-11-15] MEDS ORDERED: ACETAMINOPHEN 500 MG TABLET PO PRN (00:42)
[2016-11-15] MEDS ORDERED: SALINE FLUSH 10ml SYRINGE IV PRN (00:42)
[2016-11-15] MEDS ORDERED: CALCIUM CARBONATE Chewable 500mg TABLET PO PRN (00:42)
[2016-11-15] MEDS ORDERED: HYDROCORTISONE 2.5% CREAM 30gm RECTALLY PRN (00:42)
[2016-11-15] MEDS: IBUPROFEN 800 MG TABLET PO PRN ×3 (04:37→20:11)
[2016-11-15] MEDS: Oxycodone/Acetaminophen 5/325 1 TAB PO PRN ×2 (07:52→13:05)
[2016-11-15] MEDS: DOCUSATE CALCIUM 240 MG CAPSULE PO SCH ×2 (07:57→17:08)
[2016-11-15] MEDS ORDERED: INFLUENZA VAC QIV 2017-18 (Fluarix*)(>=3yo) 0.5ml IM ONE (08:59)
--- NOTE | 2016-11-15 09:28 | Labor and Delivery Note ---
DATE OF DELIVERY 11/14/2016 DELIVERY NOTE Normal spontaneous vaginal delivery of live female named Ravinder Damian in the OA position over intact perineum with epidural anesthesia. She presented with premature rupture of membranes. No meconium was noted and was induced per Pitocin protocol secondary to PROM. There was no nuchal cord noted at delivery. Spontaneous delivery of the placenta with a three-vessel cord. She had a second-degree perineal laceration that was repaired with 2-0 Vicryl and a small first-degree vaginal laceration repaired with 3-0 chromic on the right vaginal sidewall. Estimated blood loss was 400 ml. Patient tolerated the procedure well. Sponge, lap and needle counts were correct x 2. MTDD
--- NOTE | 2016-11-15 12:15 | OB/GYN Progress Note ---
OB-PP Progress Note - General PPD1 Maternal Group B Strep: Negative Maternal blood type: A+ Maternal Rubella Status: Immune - Subjective Date: 11/15/16 Lochia: Minimal Pain: contolled Voiding: voiding Nausea or Vomiting Present: No - Objective Vital Signs: Last Vital Signs Temp 99.1 F 11/15/16 08:30 Pulse 84 11/15/16 08:30 Resp 20 11/15/16 08:30 BP 131/83 11/15/16 08:30 Pulse Ox 99 11/15/16 08:30 Urine Output: good General: alert and oriented Abdomen: fundus firm, non-tender Extremities: non-tender Edema: none Laboratory: Laboratory Results - last 24 hr 11/14/16 18:18 WBC 11.6 H RBC 3.64 L Hgb 10.5 L Hct 32.7 L MCV 89.8 MCH 28.8 MCHC 32.1 RDW Std Deviation 43.6 Plt Count 220 MPV 11.1 - Assessment Assessment: SP, - Plan Plan: routine care
[2016-11-15] MEDS ORDERED: INFLUENZA VAC. INJ. ADMIN CHARGE INJ ONE (13:00)
--- NOTE | 2016-11-15 19:37 | Anesthesia Postoperative Note ---
- Date and Time Date: 11/15/16 Time: 19:37 - Status Patient Participated in Evaluation: Patient Participated in Person Vital Signs: Temperature 97.8 F 11/15/16 16:24 Pulse Rate 87 11/15/16 16:24 Respiratory Rate 16 11/15/16 16:24 Blood Pressure 134/80 11/15/16 16:24 Pulse Oximetry 99 11/15/16 16:24 Respiratory Function: Airway Patent Cardiovascular Function: Regular Pulse EKG: Sinus Rhythm Mental Status: Alert and Oriented Pain Intensity: 0 Hydration: Taking PO Fluids Complications During Recover: None Apparent - Follow-Up Instructions Instructions: Per Surgeon
[2016-11-16] MEDS: IBUPROFEN 800 MG TABLET PO PRN (03:48)
[2016-11-16 04:16] VITALS: O2SAT 100
--- NOTE | 2016-11-16 07:52 | OB/GYN Progress Note ---
OB-Progress Note Free Text - Date Date: 11/16/16 - Progress Note Progress Note: Doing well vss af no c/o plan dc today inst reviewed. f/u 5-6 wks q&a
--- NOTE | 2016-11-16 07:56 | Discharge Instructions ---
Discharge Plan - Med Rec/Dispo Referrals/Follow Up: Trevor Albarado MD [Physician] - Prescriptions: New Ibuprofen [Motrin] 800 mg PO Q8H PRN #30 tab PRN Reason: Pain Oxycodone/Acetaminophen 5/325 [Percocet 5/325] 1 - 2 tab PO Q4H PRN #10 tab PRN Reason: Pain Continue Pnv No.95/Ferrous Fum/Folic AC [ Tablet] 1 each PO DAILY CALCIUM CARBONATE Chewable [Tums] 500 mg PO PRN PRN PRN Reason: Heartburn - Disposition 01 Discharged Home, Self-Care
[2016-11-16] MEDS: DOCUSATE CALCIUM 240 MG CAPSULE PO SCH (10:51)
[2016-11-16 11:38] VITALS: BP 137/76; PULSE 89; RESP 16; TEMP 98
== END 2016-11-16 11:50 | disposition home or self-care (01) | DRG 775 ==
LOC: OBOBS 16:11 → MC 16:11
PROVIDERS: ADMIT Obstetrics & Gynecology; ATTEND Obstetrics & Gynecology